=== PATIENT | female | born 1975 | race African-American/Black ===

== ENCOUNTER 2019-01-06 11:10 | Emergency (ER) | payer SELFPAY ==
[~2019-01-06] VITALS: Ht 180.3 cm; Wt 149.0 kg
[2019-01-06 11:33] VITALS: BP 152/97
[2019-01-06] MEDS ORDERED: PREDNISONE 20MG TABLET PO ONE (12:00)
== END 2019-01-06 17:55 | disposition home or self-care (01) ==
LOC: ER 11:10
DX: J44.1 Chronic obstructive pulmonary disease with (acute) exacerbation (principal); Z88.8 Allergy status to other drugs, medicaments and biological substances; Z87.891 Personal history of nicotine dependence
CPT/HCPCS: 71045; 99283; J7512